=== PATIENT | male | born 2000 | race Caucasian/White ===

== ENCOUNTER → 2020-07-08 | Outpatient (CLI) | payer OTHER ==
[2020-07-08 11:24] LABS: BUN/CREATININE RATIO 18 (0-10)
[2020-07-09 09:13] LABS: CREATININE, URINE 205.3 mg/dL (Not Estab.)
== END ==
LOC: LAB 10:27
PROVIDERS: Nurse Practitioner Family
DX: E10.9 Type 1 diabetes mellitus without complications (principal)
CPT/HCPCS: 36415; 80053; 82043; 82570